=== PATIENT | male | born 1970 | race African-American/Black ===

== ENCOUNTER 2022-11-07 00:58 | Observation (INO) ==
[2022-11-07] MEDS ORDERED: HYDROmorphone 1 MG/1 ML SYRINGE IV STA (01:13)
[2022-11-07] MEDS ORDERED: PANTOPRAZOLE 40 MG VIAL IV STA (01:13)
[2022-11-07] MEDS ORDERED: SODIUM CHLORIDE 0.9% 1,000 ML IV STA (01:13)
[2022-11-07] MEDS ORDERED: ONDANSETRON 4 MG/2 ML VIAL IV STA (01:13)
[2022-11-07 02:20] LABS: Basophils % 0.3 % (0.0-0.8); Eosinophils # 0.2 10*3/uL (0.0-0.87); Eosinophils % 1.8 % (0.00-10.9); Hematocrit 37.2 VOL% (42.0-52.0); Hemoglobin 12.4 GM/DL (14.0-18.0); Immature Granulocytes % 0.3 %; Immature Granulocytes Absolute 0.03 #; Lymphocytes # 1.9 10*3/uL (1.4-4.0); Mean Corpuscular HGB Conc 33.3 GM/DL (32-36); Mean Platelet Volume 9.6 FL (9.6-12.0); Monocytes # 0.8 10*3/uL (0.11-0.8); Monocytes % 8.1 % (1.7-12.7); Neutrophils % 69.5 % (38.7-73.9); Platelet Count 343 T/CUMM (130-400); Red Blood Count 4.09 MC/CUMM (3.8-5.5); Red Cell Distribution Width 13.6 % (9.3-17.3); White Blood Count 9.5 T/CUMM (4-12)
[2022-11-07 02:23] LABS: Alanine Aminotransferase 24 U/L (16-61); Albumin 3.3 G/DL (3.4-5.0); Alkaline Phosphatase 89 U/L (45-117); Amylase 64 U/L (25-115); Aspartate Amino Transferase 14 U/L (0-37); Bilirubin,Total < 0.39 MG/DL (0.20-1.00); Blood Urea Nitrogen 18 MG/DL (7-18); Carbon Dioxide 25 MMOL/L (21-32); Chloride 109 MMOL/L (98-107); Glucose 98 MG/DL (74-106); Potassium 3.5 MMOL/L (3.5-5.1); Sodium 143 MMOL/L (136-145); Total Protein 6.7 G/DL (6.4-8.2)
[2022-11-07 02:32] LABS: Bacteria,Urine Occasional /HPF (Few); Bilirubin,Urine Negative (Negative); Blood, Urine Negative (Negative); Glucose,Urine (UA) Negative (Negative); Ketones,Urine Negative (Negative); Mucus,Urine Occasional /LPF (Occasional); Nitrite,Urine Negative (Negative); Protein,Urine Negative (Negative); RBC,Urine 9 /HPF (0-4); Squamous Epithelial Cell,Urine Occasional /HPF (0-10); Urine Appearance Clear (Clear); Urine Color Yellow (Yellow); Urine Specific Gravity 1.025 (1.001-1.035); Urine Urobilinogen 0.2 eU/dL (<2.0); Urine pH 5.5 (4.5-8.0)
[2022-11-07 02:40] LABS: Barbiturates Screen,Urine Negative (Negative); Benzodiazepines Screen,Urine Negative (Negative); Cannabinoid Screen,Urine Positive (Negative); Opiate Screen,Urine Negative (Negative); Phencyclidine Screen,Urine Negative (Negative)
[2022-11-07] MEDS ORDERED: PIPERACILLIN/TAZOBACTAM 3,375 MG in SODIUM CHLORIDE 0.9% 100 ML IV STA (04:19)
[2022-11-07] MEDS ORDERED: ONDANSETRON 4 MG/2 ML VIAL IV PRN (04:47)
[2022-11-07] MEDS ORDERED: LORazepam 2 MG/1 ML VIAL IV PRN (04:56)
[2022-11-07] MEDS: ACETAMINOPHEN 325 MG TABLET PO PRN ×2 (05:00→20:54)
[2022-11-07] MEDS: LACTATED RINGERS 1,000 ML IV SCH (07:15)
[2022-11-07] MEDS: MORPHINE 2 MG/1 ML SYRINGE IV PRN ×2 (07:16→15:40)
[2022-11-07] MEDS: PANTOPRAZOLE 40 MG TABLET PO SCH (09:02)
[2022-11-07] MEDS: THIAMINE 100 MG TABLET PO SCH ×2 (09:02→20:54)
[2022-11-07] MEDS: FOLIC ACID 1 MG TABLET PO SCH (09:03)
[2022-11-07] MEDS: MULTIVITAMIN (CENTRUM) TABLET PO SCH (09:03)
[2022-11-07 09:29] LABS: PT Patient Result 10.9 SECS (10.1-12.1)
[2022-11-07] MEDS: PIPERACILLIN/TAZOBACTAM 3,375 MG in SODIUM CHLORIDE 0.9% 100 ML IV SCH ×2 (11:45→20:55)
[2022-11-08] MEDS: PIPERACILLIN/TAZOBACTAM 3,375 MG in SODIUM CHLORIDE 0.9% 100 ML IV SCH ×2 (04:54→11:37)
[2022-11-08] MEDS: LACTATED RINGERS 1,000 ML IV SCH (04:55)
[2022-11-08 05:06] LABS: Basophils % 0.3 % (0.0-0.8); Eosinophils # 0.4 10*3/uL (0.0-0.87); Eosinophils % 3.4 % (0.00-10.9); Hematocrit 39.5 VOL% (42.0-52.0); Hemoglobin 13.3 GM/DL (14.0-18.0); Immature Granulocytes % 0.4 %; Immature Granulocytes Absolute 0.04 #; Lymphocytes # 2.2 10*3/uL (1.4-4.0); Lymphocytes % 20.3 % (21.2-54.2); Mean Corpuscular HGB Conc 33.7 GM/DL (32-36); Mean Corpuscular Volume 89.6 FL (87-102); Monocytes # 1.2 10*3/uL (0.11-0.8); Monocytes % 11.1 % (1.7-12.7); Neutrophils % 64.5 % (38.7-73.9); Platelet Count 402 T/CUMM (130-400); Red Blood Count 4.41 MC/CUMM (3.8-5.5); Red Cell Distribution Width 13.3 % (9.3-17.3); White Blood Count 10.8 T/CUMM (4-12)
[2022-11-08 05:34] LABS: Calcium 9.1 MG/DL (8.5-10.1)
[2022-11-08] MEDS: THIAMINE 100 MG TABLET PO SCH (08:21)
[2022-11-08] MEDS: PANTOPRAZOLE 40 MG TABLET PO SCH (08:21)
[2022-11-08] MEDS: FOLIC ACID 1 MG TABLET PO SCH (08:21)
[2022-11-08] MEDS: MULTIVITAMIN (CENTRUM) TABLET PO SCH (08:21)
[2022-11-08 11:00] VITALS: BP 124/74
== END 2022-11-08 13:40 | disposition home or self-care (01) ==
LOC: N.ED 00:58 → INTOOBSV 04:47 → N.EDINP 04:47 → N.3E 06:45 → N.ADMINP 06:51 → UNDODISIN 11-08 13:40
PROVIDERS: ADMIT Internal Medicine; ATTEND Internal Medicine